=== PATIENT | male | born 1970 | race Caucasian/White ===

== ENCOUNTER 2016-11-24 08:00 | Emergency (ER) | payer OTHER ==
[~2016-11-24 08:00] MED LIST: ASPIRIN ADULT L81 M1 PO; HYCET1 ML PO; MULTIPLE VITAMIN PO
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
--- NOTE | 2016-11-24 10:02 | ED ORDER SUMMARY ---
..... Patient: JONG SÁNCHEZ OrderSheet [facility] VisitID: [id number] [place] [address] 46y, M Registration Date/Time: 11/24/2016 ORDER SHEET Weight: 134.7 kg (stated) Allergies: No Known Drug Allergy GENERAL ORDERS: Cardiac Panel Stat (08:11/24/2016 Ba Hunt) (Ack 8:26 LNations ER Tech1) (8:32 JSanders R.N.) UA-Culture if indicated Urgent (08:11/24/2016 Ba Hunt) (Ack 8:26 LNations ER Tech1) (8:53 JSanders R.N.) Urine Drug Screen Urgent (:11/24/2016 Ba Hunt) (Ack 8:26 LNations ER Tech1) (8:53 JSanders R.N.) EKG - ER Stat (08:11/24/2016 Ba Hunt) (Ack 8:26 LNations ER Tech1) (8:37 JSanders R.N.) US Venous Bilat Urgent (09:11/24/2016 Franny Hunt) (Ack 9:33 LNations ER Tech1) (9:53 JSanders R.N.) D-Dimer Urgent (09:11/24/2016 Franny Hunt) (Ack 9:33 LNations ER Tech1) (9:53 JSanders R.N.) TSH Urgent (09:11/24/2016 Franny Hunt) (Ack 9:33 LNations ER Tech1) (9:53 JSanders R.N.) MEDICATION ORDERS: IV FLUIDS: IV NS with Normal Saline 1 Liter: initial bolus none -, then 1000 mL/hr for X1 (NOW) (08:11/24/2016 Ba Hunt) (8:38 JSanders R.N.) ORDER SHEET NOTES: [Electronically signed by Gloria Lugo R.N. (10:36 11/24/2016)] [Electronically signed by Usman Kowalski Dr. (17:59 11/27/2016)] [Electronically locked/signed by Gloria Lugo R.N. (10:36 11/24/2016)]
--- NOTE | 2016-11-24 10:02 | ED ORDER SUMMARY ---
..... Patient: JONG SÁNCHEZ OrderSheet [facility] VisitID: [id number] [place] [address] 46y, M Registration Date/Time: 11/24/2016 ORDER SHEET Weight: 134.7 kg (stated) Allergies: No Known Drug Allergy GENERAL ORDERS: Cardiac Panel Stat (08:11/24/2016 Ba Hunt) (Ack 8:26 LNations ER Tech1) (8:32 JSanders R.N.) UA-Culture if indicated Urgent (08:11/24/2016 Ba Hunt) (Ack 8:26 LNations ER Tech1) (8:53 JSanders R.N.) Urine Drug Screen Urgent (:11/24/2016 Ba Hunt) (Ack 8:26 LNations ER Tech1) (8:53 JSanders R.N.) EKG - ER Stat (08:11/24/2016 Ba Hunt) (Ack 8:26 LNations ER Tech1) (8:37 JSanders R.N.) US Venous Bilat Urgent (09:11/24/2016 Franny Hunt) (Ack 9:33 LNations ER Tech1) (9:53 JSanders R.N.) D-Dimer Urgent (09:11/24/2016 Franny Hunt) (Ack 9:33 LNations ER Tech1) (9:53 JSanders R.N.) TSH Urgent (09:11/24/2016 Franny Hunt) (Ack 9:33 LNations ER Tech1) (9:53 JSanders R.N.) MEDICATION ORDERS: IV FLUIDS: IV NS with Normal Saline 1 Liter: initial bolus none -, then 1000 mL/hr for X1 (NOW) (08:11/24/2016 Ba Hunt) (8:38 JSanders R.N.) ORDER SHEET NOTES: [Electronically signed by Gloria Lugo R.N. (10:36 11/24/2016)] [Electronically signed by Usman Kowalski Dr. (17:59 11/27/2016)] [Electronically locked/signed by Gloria Lugo R.N. (10:36 11/24/2016)]
--- NOTE | 2016-11-24 11:48 | DIAGNOSTIC IMAGING REPORT ---
PROCEDURE: US VENOUS - BILATERAL EXT INDICATION: DISCOLORED EXTREMITY TECHNIQUE: Duplex sonography of the deep venous system in both lower extremities was performed. Compression and augmentation techniques were used. COMPARISON: None. FINDINGS: Each interrogated segment of deep vein from the common femoral vein into the calf veins demonstrates normal compressibility, augmentation and/or color Doppler flow without filling defect. No evidence of significant soft-tissue edema, soft-tissue mass or cyst. IMPRESSION: 1. No deep venous thrombosis in either lower extremity.
--- NOTE | 2016-11-27 17:59 | ED MED RECONCILIATION SUMMARY ---
Patient: JONG SÁNCHEZ Medication Reconciliation Report [facility] VisitID: [id number] [address] [place] [address] 46y, M Registration Date/Time: 11/24/2016 Weight: 134.7 kg Height/Length: 76 in. BMI: 36.2 ALLERGIES: No Known Drug Allergy The patient's Home Medications are listed below: CONTINUE TAKING THE FOLLOWING MEDICATIONS: Aspirin Oral (81 mg) 1 tablet, daily The source(s) of the original Home Medication information: Not obtained. The following Medications were given to the patient in the Emergency Department: IV NS IV Fluids bolus 1000 mL over 1 hour(s), then 1000 mL/hr, administered: 11/24/2016 8:38:00 AM The following Medications were prescribed to the patient: None.
--- NOTE | 2016-11-27 17:59 | ED DISCHARGE INSTRUCTIONS ---
Patient: JONG SÁNCHEZ General Instructions [facility] VisitID: [id number] [place] [address] 46y, M Registration Date/Time: 11/24/2016 11/24/2016 08:14 BP: 139/86. HR: 70. RR: 18. O2 saturation: 100%. Temp: 97.8 F. Pain level now: 0/10. Blood pressure normal. Oxygen saturation normal. Neuropathy (acute left leg). INSTRUCTIONS Warnings: GENERAL WARNINGS: Return or contact your physician immediately if your condition worsens or changes unexpectedly, if not improving as expected, or if other problems arise. Specifically return if pain, vomiting, bleeding, breathing difficulty or fever. Your Current Medications: CONTINUE TAKING THE FOLLOWING MEDICATIONS: Aspirin Oral : Tablet 81 mg, 1 tablet daily. Follow-up: Return to the emergency department as needed. Follow up with your doctor in three days. Reason for referral: recheck today's concerns. Summary of care provided to patient via paper. Screening today revealed the patient's blood pressure to be in the normal range. The patient should follow up with a primary care provider for blood pressure management. Understanding of the discharge instructions verbalized by patient. ADDITIONAL INFORMATION Peripheral Neuropathy Peripheral Neuropathy is a condition that affects the nerves of the arms or legs. It causes a change in physical feeling. Sometimes it causes weakness in the muscles. You may feel tingling, numbness or shooting pains (especially at night). You may be sensitive to light touch or temperature changes. Neuropathy may be caused by being exposed to certain drugs or chemicals, or because of a vitamin deficiency. It can be a complication of a chronic disease such as diabetes or alcoholism. A ruptured disk with pressure on the spinal nerve may also cause this condition. Home Care: 1) You may take acetaminophen (Tylenol) or ibuprofen (Advil, Motrin) for pain, unless another pain medicine has been prescribed. 2) If the neuropathy affects your feet, keep your toenails trimmed and wash your feet often. Wear shoes that fit well. Doing so avoids pressure points, blisters and ulcers. Due to a loss of feeling, you may not notice injuries, so look at your feet carefully (including the soles of your feet and between your toes) at least once a week. Tell your doctor if you have any open wounds or signs of infection. 3) If vitamins have been prescribed, be sure to remind yourself to take them daily. Follow Up with your doctor or as advised by our staff. You may need further testing to find out the exact cause of your neuropathy. Get Prompt Medical Attention if any of the following occur: -- Redness, swelling or pus coming from the toes or feet -- Loss of bowel or bladder control (if this is a new symptom for you) -- Muscle weakness (if this is a new symptom for you) Paraesthesias Paraesthesia refers to a burning or prickling sensation that is sometimes felt in the hands, arms, legs or feet. It can also occur in other parts of the body. It can also feel like tingling or numbness, skin crawling or itching.The sensation is usually painless. Most people have experienced pins and needles. This feeling happens when legs have been crossed for too long and pressure is placed on a nerve. This is a temporary paraesthesia. It quickly goes away once the pressure is relieved. There are many possible causes for chronic paraesthesias. These include such disorders as stroke, herniated disk (pressing on a nerve), trapped nerve in the shoulder, elbow or wrist (such as carpal tunnel syndrome), vitamin deficiencies or even certain medicines. Laboratory tests are needed to make an accurate diagnosis. These tests may include blood tests, X-ray, CT (computerized tomography) scan or a muscle test (electromyography).Depending on the cause, treatment may include physical therapy. Home Care: Do not make any changes to your medicines without advice from your doctor. If vitamins have been prescribed, remember to take them daily at the recommended dose. Because of a decrease in feeling, a numb hand or foot may be more prone to injury. Take care to protect these areas from cuts, bumps, bruises, thomas or other injury. Keep your nails trimmed and wash your hands and feet often. Wear shoes that fit well to avoid pressure points, blisters and ulcers. Look at your hands and feet carefully (including the soles of your feet and between your toes) at least once a week and notify your doctor of any open wounds or signs of infection. Follow Up with your doctor or as advised by our staff. You may need further testing to determine the exact cause of your paraesthesia. [NOTE: If blood tests, X-ray, CT scan or electromyography were done, specialists will review them. You will be notified of any new findings that may affect your care.] Get Prompt Medical Attention if any of the following occur: Numbness or weakness of the face, one arm or one leg Slurred speech, confusion, trouble speaking, walking or seeing Severe headache, fainting spell, dizziness or seizure Chest, arm, neck or upper back pain Loss of bladder or bowel control Open wound with redness, swelling or pus You have been given the following additional information: Neuropathy, Peripheral Paraesthesias (Electronically signed by Usman Kowalski Dr. 11/27/2016 17:59)
--- NOTE | 2016-11-27 17:59 | ED MAR SUMMARY ---
..... Medication Administration Record [facility] [address] [place] [address] Patient: JONG SÁNCHEZ Visit ID: [id number] 46y, M Weight: 134.7 kg Height/Length: 76 in BMI: 36.2 ALLERGIES: No Known Drug Allergy Start 08:38 11/24/2016 Gloria Lugo R.N., Stop 09:56 11/24/2016 Gloria Lugo R.N. Medication Administered: IV NS (SALINE), Dose: IV Fluids over 1 hour(s), Rate: 1000 mL/hr, Bolus: 1000 mL over 1 hour(s), Dispensed: 1000 mL bag, Site: #1 left forearm. Medication Ordered: IV NS with Normal Saline 1 Liter: initial bolus none -, then 1000 mL/hr for X1 (NOW).
--- NOTE | 2016-11-27 17:59 | ED MAR SUMMARY ---
..... Medication Administration Record [facility] [address] [place] [address] Patient: JONG SÁNCHEZ Visit ID: [id number] 46y, M Weight: 134.7 kg Height/Length: 76 in BMI: 36.2 ALLERGIES: No Known Drug Allergy Start 08:38 11/24/2016 Gloria Lugo R.N., Stop 09:56 11/24/2016 Gloria Lugo R.N. Medication Administered: IV NS (SALINE), Dose: IV Fluids over 1 hour(s), Rate: 1000 mL/hr, Bolus: 1000 mL over 1 hour(s), Dispensed: 1000 mL bag, Site: #1 left forearm. Medication Ordered: IV NS with Normal Saline 1 Liter: initial bolus none -, then 1000 mL/hr for X1 (NOW).
--- NOTE | 2016-11-27 17:59 | ED MED RECONCILIATION SUMMARY ---
Patient: JONG SÁNCHEZ Medication Reconciliation Report [facility] VisitID: [id number] [address] [place] [address] 46y, M Registration Date/Time: 11/24/2016 Weight: 134.7 kg Height/Length: 76 in. BMI: 36.2 ALLERGIES: No Known Drug Allergy The patient's Home Medications are listed below: CONTINUE TAKING THE FOLLOWING MEDICATIONS: Aspirin Oral (81 mg) 1 tablet, daily The source(s) of the original Home Medication information: Not obtained. The following Medications were given to the patient in the Emergency Department: IV NS IV Fluids bolus 1000 mL over 1 hour(s), then 1000 mL/hr, administered: 11/24/2016 8:38:00 AM The following Medications were prescribed to the patient: None.
== END 2016-11-24 10:25 | disposition home or self-care (01) ==
LOC: ED SRH 08:00
DX: G57.92 Unspecified mononeuropathy of left lower limb (principal); I48.91 Unspecified atrial fibrillation; Z79.82 Long term (current) use of aspirin
CPT/HCPCS: 90004; 90100; 90616; 91556; 92610; 92720; 92760; 92761; 92762; 92763; 92764; 92765; 92766; 92767; 93140; 95059

== ENCOUNTER 2016-12-02 07:11 | Emergency (ER) | payer OTHER ==
--- NOTE | 2016-12-02 08:28 | DIAGNOSTIC IMAGING REPORT ---
PROCEDURE: CT HEAD WITHOUT CONTRAST INDICATION: MENTAL STATUS CHANGE TECHNIQUE: Axial CT images were acquired through the head. Coronal and sagittal reformations were created. COMPARISON: None. FINDINGS: No intracranial hemorrhage or extraaxial fluid collections. Ventricles are normal in size, shape and position. There is no mass, mass effect or midline shift. The santos-white matter differentiation is normal. There is no edema. The calvarium is intact. The extracranial soft tissues and orbits are normal. Mucoperiosteal thickening in the maxillary sinuses. IMPRESSION: 1. No CT evidence of acute intracranial process. 2. Findings discussed with emergency department at 08:[address] scans at this facility use dose modulation, iterative reconstruction, and/or weight-based dosing when appropriate to reduce radiation dose to as low as reasonably achievable.
--- NOTE | 2016-12-02 08:29 | DIAGNOSTIC IMAGING REPORT ---
PROCEDURE: XR CHEST 2 VIEW INDICATION: FEVER TECHNIQUE: PA and lateral views. COMPARISON: None. FINDINGS: Lungs are clear. Heart and mediastinum are normal. Thorax is normal. IMPRESSION: 1. Negative chest.
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
--- NOTE | 2016-12-02 10:45 | ED CLINICAL REPORT ---
Clinical Report - Physicians/Mid Levels [facility] [address] [place] [address] 12/02/2016 7:12 Patient: JONG SÁNCHEZ Time Seen: 722. Arrived- By private vehicle. Historian- patient. HISTORY OF PRESENT ILLNESS Chief Complaint: CHANGED MENTAL STATUS. This started past several days and is still present. It was abrupt in onset and has been intermittent but is not gone now. Patient was last known well (several days ago). The patient has "felt strange" and had trouble concentrating. (Describes dizziness of light headed feeling. Also reports fatigue, fevers, chills, nasal congestion, and sinus pressure to the left maxillary area. reports is been taking a lot of all of his symptoms. States that he has been monitoring it with a blood pressure monitor and oxygen monitor. Patient also states he's been taking his pulse and noted no significant abnormalities during these episodes. Lungs episode last proximally 45 minutes and resolve spontaneously. Patient has had approximately 3-5 these episodes over the past 24 hours. Patient reports following up with his primary care doctor in regards to his symptoms of dizziness. Patient is referred to physical therapy in which they did maneuvers to alleviate his dizziness. Patient reports that he was evaluated there and was not found to have vertigo related topositioning for the physical therapist. The patient is also been under care from a neurosurgeon in regards to the paresthesias to the left lower extremity. The patient reports thathe is having chronic degenerative changes and the neurosurgeon recommended cortisol injections again.). The patient has had weakness. No difficulty walking. Usually is alert and oriented X3 and usually has normal mobility. Similar symptoms previously: None. Recent medical care: Not recently seen/assessed. REVIEW OF SYSTEMS No skin rash. All systems otherwise negative, except as recorded above. PAST HISTORY See nurses notes. Medications: Aspirin Oral (Tablet 81 mg) 1 tablet, daily. Allergies: No Known Drug Allergy. SOCIAL HISTORY Never smoker. No alcohol use or drug use. No recent travel. Is a local resident. ADDITIONAL NOTES The nursing notes have been reviewed. PHYSICAL EXAM Vital Signs: 12/02/2016 07:23 BP: 132/82. HR: 114. RR: 14. O2 saturation: 98%. Temp: 99.8 F. Tachycardic. Oxygen saturation normal. Appearance: Alert. No acute distress. Head: Head atraumatic. Eyes: Pupils equal, round and reactive to light. ENT: Normal ENT inspection. Airway intact. Moist mucous membranes. Pharynx normal. (Left maxillary sinus tenderness without any overlying skin changes. No crepitus. No bony other maladies. No signs of pots puffy tumor.). Neck: Normal inspection. Neck supple. No meningeal signs. CVS: Normal heart rate and rhythm. Heart sounds normal. Pulses normal. Respiratory: No respiratory distress. Breath sounds normal. Abdomen: Soft and nontender. No organomegaly. Skin: Skin warm and dry. Normal skin color. No rash. Normal skin turgor. Extremities: Extremities exhibit normal ROM. No lower extremity edema. Neuro: Alert. Oriented X 3. Mood/affect normal. Speech normal. Cranial nerves normal (as tested). No cerebellar findings. No motor deficit. No sensory deficit. Reflexes normal. LABS, X-RAYS, AND EKG Chest X-ray: (PROCEDURE: XR CHEST 2 VIEW INDICATION: FEVER TECHNIQUE: PA and lateral views. COMPARISON: None. FINDINGS: Lungs are clear. Heart and mediastinum are normal. Thorax is normal. IMPRESSION: 1. Negative chest.). CT Head: (PROCEDURE: CT HEAD WITHOUT CONTRAST INDICATION: MENTAL STATUS CHANGE TECHNIQUE: Axial CT images were acquired through the head. Coronal and sagittal reformations were created. COMPARISON: None. FINDINGS: No intracranial hemorrhage or extraaxial fluid collections. Ventricles are normal in size, shape and position. There is no mass, mass effect or midline shift. The santos-white matter differentiation is normal. There is no edema. The calvarium is intact. The extracranial soft tissues and orbits are normal. Mucoperiosteal thickening in the maxillary sinuses. IMPRESSION: 1. No CT evidence of acute intracranial process.). The study was independently viewed by me and interpreted by the radiologist. The study was discussed with the radiologist (via pacs). Laboratory Tests: UA-Culture if indicated: (ANANT: 12/02/2016 09:50) ( MsgRcvd 12/02/2016 10:17) Final results Test Result Flag Units (Reference) URINE COLOR YELLOW URINE APPEARANCE CLEAR URINE GLUCOSE NEGATIVE (NEGATIVE) URINE BILIRUBIN NEGATIVE (NEGATIVE) URINE KETONE NEGATIVE (NEGATIVE) URINE SPECIFIC GRAVITY 1.020 (1.010-1.030) URINE PH 5.5 (5.0-8.0) URINE PROTEIN NEGATIVE (NEGATIVE) URINE UROBILINOGEN 0.2 EU/dL (0.2-1.0) URINE NITRITE NEGATIVE (NEGATIVE) URINE BLOOD NEGATIVE (NEGATIVE) URINE LEUK ESTERASE NEGATIVE (NEGATIVE) URINE RBC NONE SEEN rbc/hpf (0-1) URINE WBC NONE SEEN wbc/hpf (0-1) URINE EPITHELIAL CELLS 0-1 EPI/hpf (0-5) URINE BACTERIA TRACE (<1+) (NONE SEEN) 1+ MUCOUS URINE COMMENT CULT NOT INDICATED URINE CULTURES ARE SET-UP BASED ON THE FOLLOWING CRITERIA:POSITIVE NITRITEPOSITIVE LEUKOCYTE ESTERASEGREATER THAN 10 WHITE BLOOD CELLSMODERATE (2+) OR GREATER BACTERIA CBC w Diff: (ANANT: 12/02/2016 08:30) ( [facility] [place] 12/02/2016 09:06) Final results Test Result Flag Units (Reference) WHITE BLOOD COUNT 11.2 K/uL (4.5-11.5) RED BLOOD COUNT 4.78 M/uL (4.50-5.90) HEMOGLOBIN 13.9 gm/dL (13.5-17.5) HEMATOCRIT 42.1 % (41.0-53.0) MEAN CELL VOLUME 88 fL (80-100) MEAN CORPUSCULAR HGB 29 pg (26-34) MEAN CORPUSCULAR HGB CONC 33 g/dL (31-37) RED CELL DISTRIBUTION WIDTH 13.2 % (11.6-14.8) PLATELET COUNT 186 K/uL (150-400) NEUTROPHIL % 89.4 H % (50-75) LYMPH % 4.0 L % (25-40) MONO % 6.1 % (3-14) EOSINOPHIL % 0.4 % (0-4) BASOPHIL % 0.1 % (0-2) PT with INR: (ANANT: 12/02/2016 08:30) ( [facility] [place] 12/02/2016 09:56) Final results Test Result Flag Units (Reference) INR 1.1 (0.8-1.2) Low Intensity Therapy: INR 1.5-2.0 PT range 18.5-23.1Mod.Intensity Therapy: INR 2.0-3.0 PT range 23.1-31.5High Intensity Therapy: INR 2.5-3.5 PT range 27.4-35.5High Intensity Therapy 2: INR 3.0-4.0 PT range 31.5-39.3 CMP: (ANANT: 12/02/2016 08:30) ( MsgRcvd 12/02/2016 09:37) Final results Test Result Flag Units (Reference) GLUCOSE 97 mg/dL (70-110) BUN 16 mg/dL (7-18) CREATININE 1.0 mg/dL (0.6-1.3) Estimated GFR >60 mL/min Estimated GFR- >60 mL/min Note: Persistent reduction over 3 months in eGFR<60 mL/min/1.73 m2 defines CKD. Patients with eGFR values>=60 mL/min/1.73 m2 may also have CKD if evidence ofpersistent proteinuria. Additional information may be foundat www.kidney.org. SODIUM 142 mmol/L (136-145) POTASSIUM 3.6 mmol/L (3.5-5.1) CHLORIDE 105 mmol/L (98-107) CARBON DIOXIDE 27 mmol/L (21-32) CALCIUM 9.3 mg/dL (8.5-10.1) TOTAL PROTEIN 7.3 g/dL (6.4-8.2) ALBUMIN 3.8 g/dL (3.3-5.0) BILIRUBIN, TOTAL 0.5 mg/dL (0.0-1.0) ALKALINE PHOSPHATASE 65 U/L (46-116) AST (SGOT) 21 U/L (15-37) ALT (SGPT) 35 U/L (12-78) MAGNESIUM 1.5 L mg/dL (1.8-2.4) THYROID STIMULATING HORMONE 1.477 uIU/mL (0.34-3.74) . PROGRESS AND PROCEDURES Course of Care: the patient is a pleasant 46-year-old male presenting for evaluation of a constellation of medical concerns. At this time differential diagnosis is broad and includes infectious etiology versus metabolic abnormality. Patient will be evaluated with CT scan of the head as well as chest x-ray and laboratory studies including urinalysis. Patient is agreeable to the treatment and plan. Patient's workup was remarkable for the findings above. No acute findings noted on patient's chest x-ray. Urinalysis including thyroid function and chemistries are unremarkable. White blood cell count is noted to be normal. The patient did have an abnormality with the patient's CT scan of the head. Patient with maxillary sinus thickening consistent withsinusitis. Patient also with left-sided sinus tenderness without any overlying skin changes. Because of the findings on CT scan and examination, feel the patient is likely having a sinusitis. Because of the patient's recent symptoms, feel that antibiotics are warranted at this time. Patient is nontoxic and in no acute distress however and does not need to be admitted to the hospital. Do not feel further workup in the emergency department is required. Head discussion with patient in regards his workup here in the emergency department including his diagnosis, home care, follow-up, and return precautions. All questions have been answered. The patient expressed understanding of these instructions and was agreeable to them. CLINICAL IMPRESSION Acute maxillary sinusitis (bilateral). Mild hypomagnesemia. chronic lower back pain. INSTRUCTIONS Warnings: GENERAL WARNINGS: Return or contact your physician immediately if your condition worsens or changes unexpectedly, if not improving as expected, or if other problems arise. Specifically return if pain, vomiting, bleeding, breathing difficulty or fever. Your Current Medications: CONTINUE TAKING THE FOLLOWING MEDICATIONS: Aspirin Oral : Tablet 81 mg, 1 tablet daily. Prescription Medications: Augmentin 875 mg: take 1 tablet orally every 12 hours for 10 days. No refill. Substitution is permissible. (Disp 20 tabs) Follow-up: Return to the emergency department as needed. Follow up with your doctor in three days. Reason for referral: recheck today's concerns. Summary of care provided to patient via paper. Screening today revealed the patient's blood pressure to be in the normal range. The patient should follow up with a primary care provider for blood pressure management. Understanding of the discharge instructions verbalized by patient. (Electronically signed by Usman Kowalski Dr. 12/07/2016 3:39)
--- NOTE | 2016-12-02 10:45 | ED ORDER SUMMARY ---
..... Patient: JONG SÁNCHEZ OrderSheet [facility] VisitID: [id number] [place] [address] 46y, M Registration Date/Time: 12/02/2016 ORDER SHEET Weight: 134.7 kg (stated) Allergies: No Known Drug Allergy GENERAL ORDERS: Chest 2V Urgent (07:48 12/02/2016 Franny Hunt) (Ack 7:51 Herber) (7:58 LWhalen R.N.) CBC w Diff Urgent (07:48 12/02/2016 Franny Hunt) (Ack 7:50 Herber) (7:58 LWhalen R.N.) CMP Urgent (07:48 12/02/2016 Franny Hunt) (Ack 7:50 Herber) (7:58 LWhalen R.N.) UA-Culture if indicated Urgent (07:48 12/02/2016 Franny Hunt) (Ack 7:50 Herber) (7:58 LWhalen R.N.) PT with INR Urgent (07:48 12/02/2016 Franny Hunt) (Ack 7:50 Herber) (7:58 LWhalen R.N.) TSH Urgent (07:48 12/02/2016 Franny Hunt) (Ack 7:50 Herber) (7:58 LWhalen R.N.) Magnesium Urgent (07:48 12/02/2016 Franny Hunt) (Ack 7:50 Herber) (7:58 LWhalen R.N.) Pulse oximeter (07:48 12/02/2016 Franny Hunt) (Ack 7:50 Herber) (7:58 LWhalen R.N.) CT Head wo Cont Urgent (07:49 12/02/2016 Franny Hunt) (Ack 7:51 Herber) (7:58 LWhalen R.N.) MEDICATION ORDERS: Tylenol PO 650 mg (NOW) (09:57 12/02/2016 Franny Hunt) (9:59 LWhalen R.N.) Augmentin PO 875 mg (NOW) (10:43 12/02/2016 Franny Hunt) (11:09 LWhaljacob R.N.) IV FLUIDS: IV NS : initial bolus 1000 mL (1000 mL/hr), then none - for X1 (NOW) (07:48 12/02/2016 Franny Hunt) (Ack 7:58 LWhalen R.N.) (8:32 LWhalen R.N.) Morphine IV 4 mg (HIGH ALERT MEDICATION, NOW) (10:43 12/02/2016 Franny Hunt) (11:10 LWhalen R.N.) ORDER SHEET NOTES: [Electronically signed by Gemma Snyder R.N. (19:32 12/02/2016)] [Electronically signed by Usman Kowalski Dr. (03:39 12/07/2016)] [Electronically locked/signed by Gemma Snyder R.N. (19:32 12/02/2016)]
--- NOTE | 2016-12-02 10:45 | ED ORDER SUMMARY ---
..... Patient: JONG SÁNCHEZ OrderSheet [facility] VisitID: [id number] [place] [address] 46y, M Registration Date/Time: 12/02/2016 ORDER SHEET Weight: 134.7 kg (stated) Allergies: No Known Drug Allergy GENERAL ORDERS: Chest 2V Urgent (07:48 12/02/2016 Franny Hunt) (Ack 7:51 Herber) (7:58 LWhalen R.N.) CBC w Diff Urgent (07:48 12/02/2016 Franny Hunt) (Ack 7:50 Herber) (7:58 LWhalen R.N.) CMP Urgent (07:48 12/02/2016 Franny Hunt) (Ack 7:50 Herber) (7:58 LWhalen R.N.) UA-Culture if indicated Urgent (07:48 12/02/2016 Franny Hunt) (Ack 7:50 Herber) (7:58 LWhalen R.N.) PT with INR Urgent (07:48 12/02/2016 Franny Hunt) (Ack 7:50 Herber) (7:58 LWhalen R.N.) TSH Urgent (07:48 12/02/2016 Franny Hunt) (Ack 7:50 Herber) (7:58 LWhalen R.N.) Magnesium Urgent (07:48 12/02/2016 rFanny Hunt) (Ack 7:50 Herber) (7:58 LWhalen R.N.) Pulse oximeter (07:48 12/02/2016 Franny Hunt) (Ack 7:50 Herber) (7:58 LWhalen R.N.) CT Head wo Cont Urgent (07:49 12/02/2016 Franny Hunt) (Ack 7:51 Herber) (7:58 LWhalen R.N.) MEDICATION ORDERS: Tylenol PO 650 mg (NOW) (09:57 12/02/2016 Farnny Hunt) (9:59 LWhalen R.N.) Augmentin PO 875 mg (NOW) (10:43 12/02/2016 Franny Hunt) (11:09 LWhaljacob R.N.) IV FLUIDS: IV NS : initial bolus 1000 mL (1000 mL/hr), then none - for X1 (NOW) (07:48 12/02/2016 Franny Hunt) (Ack 7:58 LWhalen R.N.) (8:32 LWhalen R.N.) Morphine IV 4 mg (HIGH ALERT MEDICATION, NOW) (10:43 12/02/2016 Franny Hunt) (11:10 LWhalen R.N.) ORDER SHEET NOTES: [Electronically signed by Gemma Snyder R.N. (19:32 12/02/2016)] [Electronically signed by Usman Kowalski Dr. (03:39 12/07/2016)] [Electronically locked/signed by Gemma Snyder R.N. (19:32 12/02/2016)]
--- NOTE | 2016-12-07 03:39 | ED MAR SUMMARY ---
..... Medication Administration Record [facility] [address] [place] [address] Patient: JONG SÁNCHEZ Visit ID: [id number] 46y, M Weight: 134.7 kg Height/Length: 76 in BMI: 36.2 ALLERGIES: No Known Drug Allergy Start 08:32 12/02/2016 Gemma Snyder R.N., Stop 10:52 12/02/2016 Gemma Snyder R.N. Medication Administered: IV NS (SALINE), Dose: IV Fluids over 1 hour(s), Rate: 1000 mL/hr, Dispensed: 1000 mL bag, Site: #1 left AC. Medication Ordered: IV NS : initial bolus 1000 mL (1000 mL/hr), then none - for X1 (NOW). Given 09:59 12/02/2016 Gemma Snyder R.N. Medication Administered: TYLENOL [PO] (ACETAMINOPHEN), Dose: 650 mg Tablets PO. Medication Ordered: Tylenol PO 650 mg (NOW). Given 11:04 12/02/2016 Gemma Snyder R.N. Medication Administered: AUGMENTIN [PO] (AMOXICILLIN-POT CLAVULANATE), Dose: 875 mg Capsules PO. Medication Ordered: Augmentin PO 875 mg (NOW). Given 11:05 12/02/2016 Gemma Snyder R.N. Medication Administered: MORPHINE [IVP], Dose: 4 mg IVP over 2 minute(s), Site: #1 left AC. Medication Ordered: Morphine IV 4 mg (HIGH ALERT MEDICATION, NOW).
--- NOTE | 2016-12-07 03:39 | ED MED RECONCILIATION SUMMARY ---
Patient: JONG SÁNCHEZ Medication Reconciliation Report [facility] VisitID: [id number] [place] [address] 46y, M Registration Date/Time: 12/02/2016 Weight: 134.7 kg Height/Length: 76 in. BMI: 36.2 ALLERGIES: No Known Drug Allergy The patient's Home Medications are listed below: CONTINUE TAKING THE FOLLOWING MEDICATIONS: Aspirin Oral (81 mg) 1 tablet, daily The source(s) of the original Home Medication information: Not obtained. The following Medications were given to the patient in the Emergency Department: IV NS IV Fluids bolus 0, then 1000 mL/hr, administered: 12/02/2016 8:32:00 AM Tylenol [PO] PO 650 mg, administered: 12/02/2016 9:59:00 AM Augmentin [PO] PO 875 mg, administered: 12/02/2016 11:04:00 AM Morphine [IVP] IVP 4 mg, administered: 12/02/2016 11:05:00 AM The following Medications were prescribed to the patient: Augmentin 875 mg: take 1 tablet orally every 12 hours for 10 days. No refill. Substitution is permissible.(Disp 20 tabs) -- Usman Kowalski Dr.
--- NOTE | 2016-12-07 03:39 | ED DISCHARGE INSTRUCTIONS ---
Patient: JONG SÁNCHEZ General Instructions [facility] VisitID: [id number] [place] [address] 46y, M Registration Date/Time: 12/02/2016 Acute maxillary sinusitis (bilateral). Mild hypomagnesemia. chronic lower back pain. INSTRUCTIONS Warnings: GENERAL WARNINGS: Return or contact your physician immediately if your condition worsens or changes unexpectedly, if not improving as expected, or if other problems arise. Specifically return if pain, vomiting, bleeding, breathing difficulty or fever. Your Current Medications: CONTINUE TAKING THE FOLLOWING MEDICATIONS: Aspirin Oral : Tablet 81 mg, 1 tablet daily. Prescription Medications: Augmentin 875 mg: take 1 tablet orally every 12 hours for 10 days. No refill. Substitution is permissible. (Disp 20 tabs) Follow-up: Return to the emergency department as needed. Follow up with your doctor in three days. Reason for referral: recheck today's concerns. Summary of care provided to patient via paper. Screening today revealed the patient's blood pressure to be in the normal range. The patient should follow up with a primary care provider for blood pressure management. Understanding of the discharge instructions verbalized by patient. ADDITIONAL INFORMATION Sinusitis [Abx Tx] The sinuses are air-filled spaces within the bones of the face. They connect to the inside of the nose. Sinusitis is an inflammation of the tissue lining the sinus cavity. Sinus inflammation can occur during a cold or hay-fever (allergies to pollens and other particles in the air) and cause symptoms of sinus congestion and fullness. A sinus infection causes fever, headache and facial pain. There is usually green or yellow drainage from the nose or into the back of the throat (post-nasal drip). Antibiotics are prescribed to treat this condition. Home Care: Drink plenty of water, hot tea, and other liquids to stay well hydrated. This thins the mucus and promotes sinus drainage. Apply heat to the painful areas of the face. Use a towel soaked in hot water. Or, business center representative the shower and direct the hot spray onto your face. This is a good way to inhale warm water vapor and get heat on your face at the same time. (Cover your mouth and nose with your hands so you can still breathe as you do this.) Use a vaporizer with products such as Vicks VapoRub (contains menthol) at night. Suck on peppermint, menthol or eucalyptus hard candies during the day. An expectorant containing guaifenesin (such as Robitussin), helps to thin the mucus and promote drainage from the sinuses. Rabs-gme-bhifmhu decongestants may be used unless a similar medicine was prescribed. Nasal sprays work the fastest. Use one that contains phenylephrine (Pedro-synephrine, Sinex and others) or oxymetazoline (Afrin). First blow the nose gently to remove mucus, then apply the drops. Do not use these medicines more often than directed on the label or for more than three days or symptoms may worsen. You may also use tablets containing pseudoephedrine (Sudafed). Many sinus remedies combine ingredients, which may increase side effects. Read the labels or ask the pharmacist for help. NOTE: Persons with high blood pressure should not use decongestants. They can raise blood pressure. Antihistamines are useful if allergies are a cause of your sinusitis. The mildest one is chlorpheniramine (available without a prescription). The dose for adults is 8-12mg three times a day. [NOTE: Do not use chlorpheniramine if you have glaucoma or if you are a man with trouble urinating due to an enlarged prostate.] Claritin (loratidine) is an antihistamine that causes less drowsiness and is a good alternative for daytime use. Do not use nasal rinses or irrigation during an acute sinus infection, unless advised by your doctor. Rinsing may spread the infection to other sinuses. You may use acetaminophen (Tylenol) or ibuprofen (Motrin, Advil) to control pain, unless another pain medicine was prescribed. [ NOTE: If you have chronic liver or kidney disease or ever had a stomach ulcer, talk with your doctor before using these medicines.] (Aspirin should never be used in anyone under 18 years of age who is ill with a fever. It may cause severe liver damage.) Finish the full course, even if you are feeling better after a few days. Follow Up with your doctor or this facility in one week or as instructed by our staff if not improving. Get Prompt Medical Attention if any of the following occur: Facial pain or headache becomes more severe Stiff neck Unusual drowsiness or confusion, or not acting like your normal self Swelling of the forehead or eyelids Vision problems including blurred or double vision Fever of 100.4F (38C) or higher, or as directed by your healthcare provider Seizure Amoxicillin Trihydrate, Clavulanate Potassium Oral tablet What is this medicine? AMOXICILLIN; CLAVULANIC ACID (a mox i KATHI in; ANKIT gutierres devon ic id) is a penicillin antibiotic. It is used to treat certain kinds of bacterial infections. It will not work for colds, flu, or other viral infections. How should I use this medicine? Take this medicine by mouth with a full glass of water. Follow the directions on the prescription label. Take at the start of a meal. Do not crush or chew. If the tablet has a score line, you may cut it in half at the score line for easier swallowing. Take your medicine at regular intervals. Do not take your medicine more often than directed. Take all of your medicine as directed even if you think you are better. Do not skip doses or stop your medicine early. Talk to your tire trimmer hand regarding the use of this medicine in children. Special care may be needed. What side effects may I notice from receiving this medicine? Side effects that you should report to your doctor or health farm or ranch animal caretaker as soon as possible: allergic reactions like skin rash, itching or hives, swelling of the face, lips, or tongue breathing problems dark urine fever or chills, sore throat redness, blistering, peeling or loosening of the skin, including inside the mouth seizures trouble passing urine or change in the amount of urine unusual bleeding, bruising unusually weak or tired white patches or sores in the mouth or throat Side effects that usually do not require medical attention (report to your doctor or health farm or ranch animal caretaker if they continue or are bothersome): diarrhea dizziness headache nausea, vomiting stomach upset vaginal or anal irritation What may interact with this medicine? allopurinol anticoagulants control pills methotrexate probenecid What if I miss a dose? If you miss a dose, take it as soon as you can. If it is almost time for your next dose, take only that dose. Do not take double or extra doses. Where should I keep my medicine? Keep out of the reach of children. Store at room temperature below 25 degrees C (77 degrees F). Keep container tightly closed. Throw away any unused medicine after the expiration date. What should I tell my health care provider before I take this medicine? They need to know if you have any of these conditions: bowel disease, like colitis kidney disease liver disease mononucleosis an unusual or allergic reaction to amoxicillin, penicillin, cephalosporin, other antibiotics, clavulanic acid, other medicines, foods, dyes, or preservatives or trying to get breast-feeding What should I watch for while using this medicine? Tell your doctor or health farm or ranch animal caretaker if your symptoms do not improve. Do not treat diarrhea with over the counter products. Contact your doctor if you have diarrhea that lasts more than 2 days or if it is severe and watery. If you have diabetes, you may get a false-positive result for sugar in your urine. Check with your doctor or health farm or ranch animal caretaker. control pills may not work properly while you are taking this medicine. Talk to your doctor about using an extra method of control. You have been given the following additional information: Sinusitis, Abx Tx Amoxicillin Trihydrate, Clavulanate Potassium Oral tablet (Electronically signed by Usman Kowalski Dr. 12/07/2016 3:39)
--- NOTE | 2016-12-07 03:39 | ED MAR SUMMARY ---
..... Medication Administration [facility] [address] [place] [address] Patient: JONG SÁNCHEZ Visit ID: [id number] 46y, M Weight: 134.7 kg Height/Length: 76 in BMI: 36.2 ALLERGIES: No Known Drug Allergy Start 08:32 12/02/2016 Gemma Snyder R.N., Stop 10:52 12/02/2016 Gemma Snyder R.N. Medication Administered: IV NS (SALINE), Dose: IV Fluids over 1 hour(s), Rate: 1000 mL/hr, Dispensed: 1000 mL bag, Site: #1 left AC. Medication Ordered: IV NS : initial bolus 1000 mL (1000 mL/hr), then none - for X1 (NOW). Given 09:59 12/02/2016 Gemma Snyder R.N. Medication Administered: TYLENOL [PO] (ACETAMINOPHEN), Dose: 650 mg Tablets PO. Medication Ordered: Tylenol PO 650 mg (NOW). Given 11:04 12/02/2016 Gemma Snyder R.N. Medication Administered: AUGMENTIN [PO] (AMOXICILLIN-POT CLAVULANATE), Dose: 875 mg Capsules PO. Medication Ordered: Augmentin PO 875 mg (NOW). Given 11:05 12/02/2016 Gemma Snyder R.N. Medication Administered: MORPHINE [IVP], Dose: 4 mg IVP over 2 minute(s), Site: #1 left AC. Medication Ordered: Morphine IV 4 mg (HIGH ALERT MEDICATION, NOW).
--- NOTE | 2016-12-07 03:39 | ED DISCHARGE INSTRUCTIONS ---
Patient: JONG SÁNCHEZ General Instructions [facility] VisitID: [id number] [place] [address] 46y, M Registration Date/Time: 12/02/2016 Acute maxillary sinusitis (bilateral). Mild hypomagnesemia. chronic lower back pain. INSTRUCTIONS Warnings: GENERAL WARNINGS: Return or contact your physician immediately if your condition worsens or changes unexpectedly, if not improving as expected, or if other problems arise. Specifically return if pain, vomiting, bleeding, breathing difficulty or fever. Your Current Medications: CONTINUE TAKING THE FOLLOWING MEDICATIONS: Aspirin Oral : Tablet 81 mg, 1 tablet daily. Prescription Medications: Augmentin 875 mg: take 1 tablet orally every 12 hours for 10 days. No refill. Substitution is permissible. (Disp 20 tabs) Follow-up: Return to the emergency department as needed. Follow up with your doctor in three days. Reason for referral: recheck today's concerns. Summary of care provided to patient via paper. Screening today revealed the patient's blood pressure to be in the normal range. The patient should follow up with a primary care provider for blood pressure management. Understanding of the discharge instructions verbalized by patient. ADDITIONAL INFORMATION Sinusitis [Abx Tx] The sinuses are air-filled spaces within the bones of the face. They connect to the inside of the nose. Sinusitis is an inflammation of the tissue lining the sinus cavity. Sinus inflammation can occur during a cold or hay-fever (allergies to pollens and other particles in the air) and cause symptoms of sinus congestion and fullness. A sinus infection causes fever, headache and facial pain. There is usually green or yellow drainage from the nose or into the back of the throat (post-nasal drip). Antibiotics are prescribed to treat this condition. Home Care: Drink plenty of water, hot tea, and other liquids to stay well hydrated. This thins the mucus and promotes sinus drainage. Apply heat to the painful areas of the face. Use a towel soaked in hot water. Or, bilingual manager the shower and direct the hot spray onto your face. This is a good way to inhale warm water vapor and get heat on your face at the same time. (Cover your mouth and nose with your hands so you can still breathe as you do this.) Use a vaporizer with products such as Vicks VapoRub (contains menthol) at night. Suck on peppermint, menthol or eucalyptus hard candies during the day. An expectorant containing guaifenesin (such as Robitussin), helps to thin the mucus and promote drainage from the sinuses. [id number] decongestants may be used unless a similar medicine was prescribed. Nasal sprays work the fastest. Use one that contains phenylephrine (Pedro-synephrine, Sinex and others) or oxymetazoline (Afrin). First blow the nose gently to remove mucus, then apply the drops. Do not use these medicines more often than directed on the label or for more than three days or symptoms may worsen. You may also use tablets containing pseudoephedrine (Sudafed). Many sinus remedies combine ingredients, which may increase side effects. Read the labels or ask the pharmacist for help. NOTE: Persons with high blood pressure should not use decongestants. They can raise blood pressure. Antihistamines are useful if allergies are a cause of your sinusitis. The mildest one is chlorpheniramine (available without a prescription). The dose for adults is 8-12mg three times a day. [NOTE: Do not use chlorpheniramine if you have glaucoma or if you are a man with trouble urinating due to an enlarged prostate.] Claritin (loratidine) is an antihistamine that causes less drowsiness and is a good alternative for daytime use. Do not use nasal rinses or irrigation during an acute sinus infection, unless advised by your doctor. Rinsing may spread the infection to other sinuses. You may use acetaminophen (Tylenol) or ibuprofen (Motrin, Advil) to control pain, unless another pain medicine was prescribed. [ NOTE: If you have chronic liver or kidney disease or ever had a stomach ulcer, talk with your doctor before using these medicines.] (Aspirin should never be used in anyone under 18 years of age who is ill with a fever. It may cause severe liver damage.) Finish the full course, even if you are feeling better after a few days. Follow Up with your doctor or this facility in one week or as instructed by our staff if not improving. Get Prompt Medical Attention if any of the following occur: Facial pain or headache becomes more severe Stiff neck Unusual drowsiness or confusion, or not acting like your normal self Swelling of the forehead or eyelids Vision problems including blurred or double vision Fever of 100.4F (38C) or higher, or as directed by your healthcare provider Seizure Amoxicillin Trihydrate, Clavulanate Potassium Oral tablet What is this medicine? AMOXICILLIN; CLAVULANIC ACID (a mox i KATHI in; ANKIT gutierres devon ic id) is a penicillin antibiotic. It is used to treat certain kinds of bacterial infections. It will not work for colds, flu, or other viral infections. How should I use this medicine? Take this medicine by mouth with a full glass of water. Follow the directions on the prescription label. Take at the start of a meal. Do not crush or chew. If the tablet has a score line, you may cut it in half at the score line for easier swallowing. Take your medicine at regular intervals. Do not take your medicine more often than directed. Take all of your medicine as directed even if you think you are better. Do not skip doses or stop your medicine early. Talk to your sea shell gatherer regarding the use of this medicine in children. Special care may be needed. What side effects may I notice from receiving this medicine? Side effects that you should report to your doctor or health pet care technician as soon as possible: allergic reactions like skin rash, itching or hives, swelling of the face, lips, or tongue breathing problems dark urine fever or chills, sore throat redness, blistering, peeling or loosening of the skin, including inside the mouth seizures trouble passing urine or change in the amount of urine unusual bleeding, bruising unusually weak or tired white patches or sores in the mouth or throat Side effects that usually do not require medical attention (report to your doctor or health pet care technician if they continue or are bothersome): diarrhea dizziness headache nausea, vomiting stomach upset vaginal or anal irritation What may interact with this medicine? allopurinol anticoagulants control pills methotrexate probenecid What if I miss a dose? If you miss a dose, take it as soon as you can. If it is almost time for your next dose, take only that dose. Do not take double or extra doses. Where should I keep my medicine? Keep out of the reach of children. Store at room temperature below 25 degrees C (77 degrees F). Keep container tightly closed. Throw away any unused medicine after the expiration date. What should I tell my health care provider before I take this medicine? They need to know if you have any of these conditions: bowel disease, like colitis kidney disease liver disease mononucleosis an unusual or allergic reaction to amoxicillin, penicillin, cephalosporin, other antibiotics, clavulanic acid, other medicines, foods, dyes, or preservatives or trying to get breast-feeding What should I watch for while using this medicine? Tell your doctor or health pet care technician if your symptoms do not improve. Do not treat diarrhea with over the counter products. Contact your doctor if you have diarrhea that lasts more than 2 days or if it is severe and watery. If you have diabetes, you may get a false-positive result for sugar in your urine. Check with your doctor or health pet care technician. control pills may not work properly while you are taking this medicine. Talk to your doctor about using an extra method of control. You have been given the following additional information: Sinusitis, Abx Tx Amoxicillin Trihydrate, Clavulanate Potassium Oral tablet (Electronically signed by Usman Kowalski Dr. 12/07/2016 3:39)
--- NOTE | 2016-12-07 03:39 | ED MED RECONCILIATION SUMMARY ---
Patient: JONG SÁNCHEZ Medication Reconciliation Report [facility] VisitID: [id number] [place] [address] 46y, M Registration Date/Time: 12/02/2016 Weight: 134.7 kg Height/Length: 76 in. BMI: 36.2 ALLERGIES: No Known Drug Allergy The patient's Home Medications are listed below: CONTINUE TAKING THE FOLLOWING MEDICATIONS: Aspirin Oral (81 mg) 1 tablet, daily The source(s) of the original Home Medication information: Not obtained. The following Medications were given to the patient in the Emergency Department: IV NS IV Fluids bolus 0, then 1000 mL/hr, administered: 12/02/2016 8:32:00 AM Tylenol [PO] PO 650 mg, administered: 12/02/2016 9:59:00 AM Augmentin [PO] PO 875 mg, administered: 12/02/2016 11:04:00 AM Morphine [IVP] IVP 4 mg, administered: 12/02/2016 11:05:00 AM The following Medications were prescribed to the patient: Augmentin 875 mg: take 1 tablet orally every 12 hours for 10 days. No refill. Substitution is permissible.(Disp 20 tabs) -- Usman Kowalski Dr.
== END 2016-12-02 11:20 | disposition home or self-care (01) ==
LOC: ED SRH 07:11
DX: J01.00 Acute maxillary sinusitis, unspecified (principal); E83.42 Hypomagnesemia; M54.5 Low back pain; G89.29 Other chronic pain; I48.91 Unspecified atrial fibrillation; Z79.82 Long term (current) use of aspirin
CPT/HCPCS: 90004; 90100; 92720; 93140; 94060; 95059